=== PATIENT | male | born 1965 | race Hispanic/Latino ===

== ENCOUNTER 2021-03-02 12:22 | Emergency (ER) | payer MEDICARE, OTHER ==
[~2021-03-02] VITALS: Ht 167.6 cm; Wt 104.3 kg
[2021-03-02] MEDS ORDERED: ONDANSETRON HCL INJ 2MG/ML 2ML 2 MG/ML VIAL IV STA ×2 (13:02→16:13)
[2021-03-02] MEDS ORDERED: PANTOPRAZOLE 40 MG 10ML VIAL IV STA (13:02)
[2021-03-02] MEDS ORDERED: SODIUM CHLORIDE 0.9% 500ML 500 ML IV ONE (13:15)
[2021-03-02] MEDS ORDERED: DIATRIZOATE MEGL/DIATRIZOA SOD 30 ML BTL PO ONE (13:17)
[2021-03-02 13:29] LABS: BASOPHILS # (AUTO) 0.1 (0.0-0.1); BASOPHILS % 0.8 % (0.0-1.0); EOSINOPHILS # (AUTO) 0.4 (0.0-0.4); EOSINOPHILS % 4.3 % (0.0-6.0); HEMATOCRIT 43.4 % (38.2-49.6); HEMOGLOBIN 14.5 g/dL (14.0-18.0); LYMPHOCYTES # (AUTO) 1.6 (1.0-3.2); LYMPHOCYTES % 17.9 % (18.0-39.1); MEAN CORPUSCULAR HEMOGLOBIN 29.1 pg (28-32); MEAN CORPUSCULAR HGB CONC 33.4 g/dL (31-35); MONOCYTES # (AUTO) 0.9 (0.2-0.8); MONOCYTES % 10.5 % (4.4-11.3); NEUTROPHILS # (AUTO) 5.9 (2.1-6.9); NEUTROPHILS % 65.7 % (38.7-80.0); PLATELET COUNT 223 x10e3/uL (140-360); RED BLOOD COUNT 4.99 x10e6/uL (4.3-5.7); RED CELL DISTRIBUTION WIDTH 13.7 % (11.7-14.4)
[2021-03-02 13:48] LABS: ALBUMIN 4.4 g/dL (3.5-5.0); ALBUMIN/GLOBULIN RATIO 1.2 (0.8-2.0); ANION GAP 14.9 mmol/L (8-16); CALCIUM 8.8 mg/dL (8.4-10.2); CREATININE, SERUM 1.73 mg/dL (0.72-1.25); MAGNESIUM 2.5 MG/DL (1.3-2.1); POTASSIUM 3.9 mmol/L (3.5-5.1)
[2021-03-02 14:02] LABS: CLARITY,URINE CLEAR (CLEAR); COLOR,URINE YELLOW (YELLOW); LEUKOCYTE ESTERASE ,URINE NEGATIVE (NEGATIVE); NITRITE,URINE NEGATIVE (NEGATIVE)
[2021-03-02 14:03] LABS: KETONES,URINE NEGATIVE (NEGATIVE); PROTEIN,URINE DIPSTICK NEGATIVE (NEGATIVE); URINE UROBILINOGEN 0.2 mg/dL (0.2 - 1)
[2021-03-02 14:17] LABS: EPITHELIAL CELLS,URINE RARE /LPF; HYALINE CASTS 0-1 (0-1)
[2021-03-02] MEDS ORDERED: MORPHINE SULFATE INJ 4 MG/ML INJ 1ML IV ONE (16:15)
[2021-03-02] MEDS ORDERED: SODIUM CHLORIDE 0.9% 50ML 50 ML ONE (16:41)
[2021-03-02] MEDS ORDERED: IOPAMIDOL 370 MG/ML 200 ML INFUS..BTL INJ ONE (16:42)
== END 2021-03-02 17:18 | disposition home or self-care (01) ==
LOC: ER 12:54
DX: R10.30 Lower abdominal pain, unspecified (principal); I10 Essential (primary) hypertension; E11.9 Type 2 diabetes mellitus without complications; E78.5 Hyperlipidemia, unspecified; Z85.038 Personal history of other malignant neoplasm of large intestine; Z85.118 Personal history of other malignant neoplasm of bronchus and lung
CPT/HCPCS: 36415; 74177; 80053; 81001; 82150; 83690; 83735; 85025; 87086; 99284; C9113; J2270; J2405; J7040; Q9967

== ENCOUNTER → 2021-05-02 | Day surgery (SDC) | payer MEDICARE ==
[2021-04-28 16:19] LABS: BASOPHILS # (AUTO) 0.1 (0.0-0.1); BASOPHILS % 0.9 % (0.0-1.0); EOSINOPHILS # (AUTO) 0.3 (0.0-0.4); EOSINOPHILS % 3.4 % (0.0-6.0); HEMATOCRIT 43.2 % (38.2-49.6); HEMOGLOBIN 14.3 g/dL (14.0-18.0); LYMPHOCYTES # (AUTO) 1.6 (1.0-3.2); LYMPHOCYTES % 16.9 % (18.0-39.1); MEAN CORPUSCULAR HEMOGLOBIN 28.7 pg (28-32); MEAN CORPUSCULAR HGB CONC 33.1 g/dL (31-35); MEAN CORPUSCULAR VOLUME 86.7 fL (81-99); MONOCYTES # (AUTO) 0.7 (0.2-0.8); MONOCYTES % 6.8 % (4.4-11.3); NEUTROPHILS # (AUTO) 6.8 (2.1-6.9); NEUTROPHILS % 70.7 % (38.7-80.0); PLATELET COUNT 242 x10e3/uL (140-360); RED BLOOD COUNT 4.98 x10e6/uL (4.3-5.7); RED CELL DISTRIBUTION WIDTH 13.3 % (11.7-14.4)
[2021-04-28 16:30] LABS: PROTHROMBIN TIME 13.8 seconds (11.9-14.5)
[2021-04-28 16:37] LABS: ALBUMIN 4.2 g/dL (3.5-5.0); ALBUMIN/GLOBULIN RATIO 1.1 (0.8-2.0); ANION GAP 13.2 mmol/L (8-16); CALCIUM 9.1 mg/dL (8.4-10.2); CREATININE, SERUM 1.36 mg/dL (0.72-1.25); POTASSIUM 4.2 mmol/L (3.5-5.1)
[~2021-05-02] MED LIST: FENTANYL CITRATE/PF 100MCG/2 ML INJ ONE; GABAPENTIN300 MG PO; GLIMEPIRIDE2 MG PO; GLUCAGON FOR INJ 1 MG VIAL ONE; JARDIANCE25 MG PO; LEVOTHYROXINE50 MCG PO; LIDOCAINE HCL 2% LOCAL INJ 5 ML SDV VIAL INJ ONE; LIPITOR10 MG PO; METFORMIN HCL500 MG PO; MIDAZOLAM HCL 2 MG/2 ML VIAL ONE; POVIDONE IODINE 0.05% 0.05 % ML PO ONE; PROPOFOL IV EMULSION 10 MG/ML 20 ML VIAL ONE; QUETIAPINE FUM100 MG PO; SERTRALINE HCL100 MG PO; SODIUM CHLORIDE 0.9% 50ML 50 ML ONE; ZESTRIL10 MG PO
[2021-05-02 14:00] VITALS: BP 101/61
== END | disposition home or self-care (01) ==
LOC: OR 09:52
PROVIDERS: ATTEND Internal Medicine Gastroenterology
DX: K59.09 Other constipation (principal); Z85.038 Personal history of other malignant neoplasm of large intestine; D12.2 Benign neoplasm of ascending colon; D12.3 Benign neoplasm of transverse colon; K29.50 Unspecified chronic gastritis without bleeding; K25.9 Gastric ulcer, unspecified as acute or chronic, without hemorrhage or perforation; K20.90 Esophagitis, unspecified without bleeding; Z98.0 Intestinal bypass and anastomosis status; K62.89 Other specified diseases of anus and rectum; K21.9 Gastro-esophageal reflux disease without esophagitis; K64.8 Other hemorrhoids; K74.60 Unspecified cirrhosis of liver; E11.9 Type 2 diabetes mellitus without complications; I10 Essential (primary) hypertension; F32.9 Major depressive disorder, single episode, unspecified; Z01.810 Encounter for preprocedural cardiovascular examination; Z01.812 Encounter for preprocedural laboratory examination; Z79.84 Long term (current) use of oral hypoglycemic drugs; Z68.36 Body mass index [BMI] 36.0-36.9, adult; Z85.118 Personal history of other malignant neoplasm of bronchus and lung; Z80.0 Family history of malignant neoplasm of digestive organs
CPT/HCPCS: 36415; 43239; 45385; 80053; 85025; 85610; 85730; 93005; C9113; J1610; J2001; J2250; J2704; J3010; 45378; 45384

== ENCOUNTER → 2022-06-09 | Outpatient (CLI) | payer MEDICARE ==
[~2022-06-09] MED LIST changes: -FENTANYL CITRATE/PF 100MCG/2 ML INJ ONE; -GLUCAGON FOR INJ 1 MG VIAL ONE; -LIDOCAINE HCL 2% LOCAL INJ 5 ML SDV VIAL INJ ONE; -MIDAZOLAM HCL 2 MG/2 ML VIAL ONE; -POVIDONE IODINE 0.05% 0.05 % ML PO ONE; -PROPOFOL IV EMULSION 10 MG/ML 20 ML VIAL ONE; -SODIUM CHLORIDE 0.9% 50ML 50 ML ONE
== END ==
LOC: US 09:47
PROVIDERS: ATTEND Internal Medicine Nephrology
DX: N18.31 Chronic kidney disease, stage 3a (principal)
CPT/HCPCS: 76770; 76857

== ENCOUNTER 2023-08-31 09:22 | Outpatient (RCR) | payer MEDICARE | END 2023-09-11 | LOC: WCC 09:22 | PROVIDERS: ATTEND Internal Medicine Infectious Disease | DX: T81.89XA Other complications of procedures, not elsewhere classified, initial encounter (principal) ==

== ENCOUNTER 2023-09-21 09:31 | Outpatient (RCR) | payer MEDICARE ==
[2023-09-21] MEDS ORDERED: LIDOCAINE/PRILOCAINE 2.5-2.5% KIT ONE (13:19)
== END 2023-10-11 ==
LOC: WCC 09:31
PROVIDERS: ATTEND Internal Medicine Infectious Disease
DX: T81.89XA Other complications of procedures, not elsewhere classified, initial encounter (principal)

== ENCOUNTER 2024-07-01 15:14 | Inpatient (IN) | payer MEDICARE ==
[~2024-07-01] VITALS: Ht 170.2 cm; Wt 89.4 kg
[2024-07-01 16:20] VITALS: TEMP 98.4
[2024-07-01] MEDS ORDERED: SODIUM CHLORIDE FLUSH 10 ML SYR IV PRN (16:45)
[2024-07-01 17:01] LABS: BASOPHILS # (AUTO) 0.1 (0.0-0.1); BASOPHILS % 0.7 % (0.0-1.0); EOSINOPHILS # (AUTO) 0.2 (0.0-0.4); EOSINOPHILS % 1.3 % (0.0-6.0); HEMATOCRIT 40.6 % (38.2-49.6); HEMOGLOBIN 13.9 g/dL (14.0-18.0); LYMPHOCYTES # (AUTO) 1.4 (1.0-3.2); LYMPHOCYTES % 11.4 % (18.0-39.1); MEAN CORPUSCULAR HEMOGLOBIN 32.6 pg (28-32); MEAN CORPUSCULAR HGB CONC 34.2 g/dL (31-35); MEAN CORPUSCULAR VOLUME 95.1 fL (81-99); MONOCYTES # (AUTO) 1.4 (0.2-0.8); MONOCYTES % 11.7 % (4.4-11.3); NEUTROPHILS # (AUTO) 8.9 (2.1-6.9); NEUTROPHILS % 74.5 % (38.7-80.0); PLATELET COUNT 186 x10e3/uL (140-360); RED BLOOD COUNT 4.27 x10e6/uL (4.3-5.7); RED CELL DISTRIBUTION WIDTH 14.6 % (11.7-14.4); WHITE BLOOD COUNT 12.02 x10e3/uL (4.8-10.8)
[2024-07-01 17:17] LABS: ALANINE AMINOTRANSFERASE 16 IU/L (0-55); ALBUMIN 3.4 g/dL (3.5-5.0); ALBUMIN/GLOBULIN RATIO 0.9 (0.8-2.0); ALKALINE PHOSPHATASE 118 IU/L (40-150); ANION GAP 14.4 mmol/L (8-16); BILIRUBIN,TOTAL 1.7 mg/dL (0.2-1.2); BLOOD UREA NITROGEN 6 mg/dL (7-26); BUN/CREATININE RATIO 8 (6-25); CALCIUM 9.3 mg/dL (8.4-10.2); CARBON DIOXIDE 23 mmol/L (22-29); CHLORIDE 104 mmol/L (98-107); CREATININE, SERUM 0.73 mg/dL (0.72-1.25); EST GLOMERULAR FILTRATION RATE 104 ML/MIN (>=60); GLUCOSE 127 mg/dL (74-118); SODIUM 138 mmol/L (136-145)
[2024-07-01 17:18] LABS: POTASSIUM 3.4 mmol/L (3.5-5.1)
[2024-07-01 17:24] LABS: COVID 19 ANTIGEN NOT DETECTED (NEGATIVE)
[2024-07-01] MEDS ORDERED: IOPAMIDOL 370 MG/ML 100 ML INFUS..BTL INJ ONE (17:31)
[2024-07-01 17:41] LABS: BILIRUBIN,URINE SMALL (NEGATIVE); CLARITY,URINE SL CLOUDY (CLEAR); COLOR,URINE AMBER (YELLOW); GLUCOSE, URINE 1+ (NEGATIVE); KETONES,URINE NEGATIVE (NEGATIVE); LEUKOCYTE ESTERASE ,URINE NEGATIVE (NEGATIVE); NITRITE,URINE NEGATIVE (NEGATIVE); PH,URINE 6.5 (5 - 7); PROTEIN,URINE DIPSTICK 1+ (NEGATIVE); URINE UROBILINOGEN >=8 mg/dL (0.2 - 1)
[2024-07-01 17:52] LABS: BACTERIA,URINE FEW /HPF; MUCUS,URINE MODERATE (RARE)
[2024-07-01] MEDS: Morphine 4mg INJECTION 4 MG/ML INJ IV ONE (18:26)
[2024-07-01 20:35] VITALS: PULSE 88; RESP 16
[2024-07-01] MEDS: SODIUM CHLORIDE 0.9% 1000ML 1,000 ML IV SCH (22:30)
[2024-07-01] MEDS: Morphine 4mg INJECTION 4 MG/ML INJ IV PRN (22:31)
[2024-07-01] MEDS: ONDANSETRON HCL INJ 2MG/ML 2ML 2 MG/ML VIAL IV PRN (22:31)
[2024-07-01] MEDS: SODIUM CHLORIDE 0.9% 250ML IRRIG IR SCH (22:33)
[2024-07-01] MEDS: BENZOCAINE 20% SPR 60 ML CAN MT ONE (22:34)
[2024-07-02] VITALS (8 sets, daily range): BP systolic 139–157; BP diastolic 85–93; PULSE 76–88; RESP 17–18; TEMP 97.3–98.4; O2SAT 96–98
[2024-07-02] MEDS ORDERED: NEXIUM40 MG PO (00:20)
[2024-07-02] MEDS ORDERED: HYDROCODON-ACE1 EA11 PO (00:22)
[2024-07-02 05:38] LABS: BASOPHILS # (AUTO) 0.1 (0.0-0.1); BASOPHILS % 0.9 % (0.0-1.0); EOSINOPHILS # (AUTO) 0.2 (0.0-0.4); EOSINOPHILS % 1.2 % (0.0-6.0); HEMOGLOBIN 13.4 g/dL (14.0-18.0); LYMPHOCYTES # (AUTO) 1.8 (1.0-3.2); MEAN CORPUSCULAR HEMOGLOBIN 32.5 pg (28-32); MEAN CORPUSCULAR HGB CONC 33.5 g/dL (31-35); MEAN CORPUSCULAR VOLUME 97.1 fL (81-99); MONOCYTES # (AUTO) 1.6 (0.2-0.8); MONOCYTES % 12.1 % (4.4-11.3); NEUTROPHILS # (AUTO) 9.3 (2.1-6.9); NEUTROPHILS % 71.3 % (38.7-80.0); PLATELET COUNT 181 x10e3/uL (140-360); RED BLOOD COUNT 4.12 x10e6/uL (4.3-5.7); RED CELL DISTRIBUTION WIDTH 14.6 % (11.7-14.4); WHITE BLOOD COUNT 13.02 x10e3/uL (4.8-10.8)
[2024-07-02 05:42] LABS: INR 1.22
[2024-07-02 05:43] LABS: PARTIAL THROMBOPLASTIN TIME 31.7 seconds (23.8-35.5)
[2024-07-02 06:05] LABS: ALBUMIN 3.2 g/dL (3.5-5.0); ALBUMIN/GLOBULIN RATIO 0.9 (0.8-2.0); ANION GAP 12.9 mmol/L (8-16); BILIRUBIN,TOTAL 1.8 mg/dL (0.2-1.2); CALCIUM 9.7 mg/dL (8.4-10.2); CREATININE, SERUM 0.76 mg/dL (0.72-1.25); POTASSIUM 3.9 mmol/L (3.5-5.1); TOTAL PROTEIN 6.7 g/dL (6.5-8.1)
[2024-07-02] MEDS ORDERED: HYDRALAZINE HCL 20 MG/ML VIAL IV PRN (07:45)
[2024-07-02] MEDS ORDERED: ACETAMINOPHEN 1000 MG/100 ML IV PRN (07:45)
[2024-07-02] MEDS: INSULIN LISPRO 100 UNIT/1 ML 3ML VIAL SQ SCH (08:15)
[2024-07-02] MEDS: ENOXAPARIN SOD INJ 40 MG/0.4 ML SYR SC SCH (18:27)
[2024-07-02] MEDS: ONDANSETRON HCL INJ 2MG/ML 2ML 2 MG/ML VIAL IV PRN (20:38)
[2024-07-02] MEDS: METOCLOPRAMIDE HCL 10 MG/2ML VIAL IV SCH (23:12)
[2024-07-02] MEDS: LORAZEPAM INJ 2 MG/ML VIAL IV PRN (23:12)
[2024-07-03] VITALS (7 sets, daily range): BP systolic 131–165; BP diastolic 68–93; PULSE 84–97; RESP 17–18; TEMP 97.6–98.2; O2SAT 96–100
[2024-07-03 05:06] LABS: BASOPHILS # (AUTO) 0.1 (0.0-0.1); EOSINOPHILS # (AUTO) 0.2 (0.0-0.4); HEMATOCRIT 32.6 % (38.2-49.6); LYMPHOCYTES # (AUTO) 1.3 (1.0-3.2); LYMPHOCYTES % 13.6 % (18.0-39.1); MEAN CORPUSCULAR HEMOGLOBIN 32.6 pg (28-32); MEAN CORPUSCULAR HGB CONC 33.7 g/dL (31-35); MEAN CORPUSCULAR VOLUME 96.7 fL (81-99); MONOCYTES # (AUTO) 1.1 (0.2-0.8); MONOCYTES % 12.4 % (4.4-11.3); NEUTROPHILS # (AUTO) 6.5 (2.1-6.9); NEUTROPHILS % 70.6 % (38.7-80.0); PLATELET COUNT 149 x10e3/uL (140-360); RED BLOOD COUNT 3.37 x10e6/uL (4.3-5.7); RED CELL DISTRIBUTION WIDTH 14.4 % (11.7-14.4)
[2024-07-03 05:46] LABS: ALBUMIN 2.8 g/dL (3.5-5.0); ALBUMIN/GLOBULIN RATIO 0.9 (0.8-2.0); BILIRUBIN,TOTAL 1.7 mg/dL (0.2-1.2); CALCIUM 8.2 mg/dL (8.4-10.2); CREATININE, SERUM 0.65 mg/dL (0.72-1.25); MAGNESIUM 1.7 MG/DL (1.3-2.1); PHOSPHORUS 3.4 MG/DL (2.3-4.7); TOTAL PROTEIN 5.8 g/dL (6.5-8.1)
[2024-07-03 05:52] LABS: THYROID STIMULATING HORMONE 2.547 uIU/mL (0.350-4.940)
[2024-07-03] MEDS: MAGNESIUM SULFATE 2GM/50ML 50 ML IV ONE (11:26)
[2024-07-03] MEDS: POTASSIUM CHLORIDE 10MEQ/100ML 400 ML IV ONE (11:28)
[2024-07-03] MEDS ORDERED: ALBUMIN 25% 12.5GM 50ML 0 ML IV ONE (15:42)
[2024-07-03 17:13] LABS: BODY FLUID APPEARANCE CLOUDY; BODY FLUID COLOR RED; BODY FLUID TYPE PERITONEAL
[2024-07-03 17:18] LABS: RBC,BODY FLUID 40000 cells/uL; WBC,BODY FLUID 1058 cells/uL
[2024-07-03 19:20] LABS: LYMPHOCYTES,BODY FLUID 38 %; MONO/MACROPHG,BODY FLUID 61 %; NEUTROPHILS,BODY FLUID 1 %; TOTAL CELLS COUNTED (DIFF) 100
[2024-07-04] VITALS (7 sets, daily range): BP systolic 132–157; BP diastolic 72–89; PULSE 85–91; RESP 18–20; TEMP 97.6–98; O2SAT 95–98
[2024-07-04 05:38] LABS: BASOPHILS # (AUTO) 0.1 (0.0-0.1); BASOPHILS % 0.8 % (0.0-1.0); EOSINOPHILS # (AUTO) 0.1 (0.0-0.4); EOSINOPHILS % 1.4 % (0.0-6.0); HEMATOCRIT 33.1 % (38.2-49.6); HEMOGLOBIN 11.1 g/dL (14.0-18.0); LYMPHOCYTES # (AUTO) 1.1 (1.0-3.2); LYMPHOCYTES % 12.8 % (18.0-39.1); MEAN CORPUSCULAR HEMOGLOBIN 32.6 pg (28-32); MEAN CORPUSCULAR HGB CONC 33.5 g/dL (31-35); MEAN CORPUSCULAR VOLUME 97.1 fL (81-99); MONOCYTES # (AUTO) 1.1 (0.2-0.8); MONOCYTES % 13.3 % (4.4-11.3); NEUTROPHILS # (AUTO) 6.1 (2.1-6.9); NEUTROPHILS % 71.1 % (38.7-80.0); PLATELET COUNT 168 x10e3/uL (140-360); RED BLOOD COUNT 3.41 x10e6/uL (4.3-5.7); RED CELL DISTRIBUTION WIDTH 14.4 % (11.7-14.4); WHITE BLOOD COUNT 8.57 x10e3/uL (4.8-10.8)
[2024-07-04 06:11] LABS: ALBUMIN/GLOBULIN RATIO 0.9 (0.8-2.0); ANION GAP 21.2 mmol/L (8-16); BILIRUBIN,TOTAL 1.5 mg/dL (0.2-1.2); CALCIUM 8.5 mg/dL (8.4-10.2); CREATININE, SERUM 0.72 mg/dL (0.72-1.25); MAGNESIUM 1.9 MG/DL (1.3-2.1); TOTAL PROTEIN 6.3 g/dL (6.5-8.1)
[2024-07-04 06:14] LABS: POTASSIUM 3.2 mmol/L (3.5-5.1)
[2024-07-04] MEDS: DEXTROSE 50% SYRINGE 50 ML IV PRN (06:21)
[2024-07-04] MEDS: BISACODYL 10 MG SUPP PR ONE (11:35)
[2024-07-04] MEDS: DEXTROSE 5%/0.45% SOD CHL 1,000 ML IV ONE (14:38)
[2024-07-04] MEDS: POTASSIUM CHLORIDE 10MEQ EA PO ONE (18:00)
[2024-07-04] MEDS: BISACODYL 10 MG SUPP PR SCH (22:24)
[2024-07-05 00:02] VITALS: BP 156/91; PULSE 93; RESP 17; TEMP 98; O2SAT 98
[2024-07-05 04:02] VITALS: BP 138/95; PULSE 88; RESP 16; TEMP 98.2; O2SAT 93
[2024-07-05 05:54] LABS: BASOPHILS # (AUTO) 0.1 (0.0-0.1); BASOPHILS % 0.9 % (0.0-1.0); EOSINOPHILS # (AUTO) 0.1 (0.0-0.4); EOSINOPHILS % 1.7 % (0.0-6.0); HEMOGLOBIN 10.7 g/dL (14.0-18.0); LYMPHOCYTES # (AUTO) 1.1 (1.0-3.2); MEAN CORPUSCULAR HEMOGLOBIN 32.3 pg (28-32); MEAN CORPUSCULAR HGB CONC 33.4 g/dL (31-35); MEAN CORPUSCULAR VOLUME 96.7 fL (81-99); MONOCYTES # (AUTO) 1.1 (0.2-0.8); MONOCYTES % 15.6 % (4.4-11.3); NEUTROPHILS # (AUTO) 4.6 (2.1-6.9); NEUTROPHILS % 65.2 % (38.7-80.0); PLATELET COUNT 169 x10e3/uL (140-360); RED BLOOD COUNT 3.31 x10e6/uL (4.3-5.7); RED CELL DISTRIBUTION WIDTH 14.1 % (11.7-14.4); WHITE BLOOD COUNT 7.05 x10e3/uL (4.8-10.8)
[2024-07-05 06:07] LABS: ALANINE AMINOTRANSFERASE 18 IU/L (0-55); ALBUMIN 2.8 g/dL (3.5-5.0); ALBUMIN/GLOBULIN RATIO 0.9 (0.8-2.0); ALKALINE PHOSPHATASE 94 IU/L (40-150); ANION GAP 13.8 mmol/L (8-16); BILIRUBIN,TOTAL 1.2 mg/dL (0.2-1.2); BLOOD UREA NITROGEN < 5 mg/dL (7-26); CALCIUM 8.6 mg/dL (8.4-10.2); CARBON DIOXIDE 25 mmol/L (22-29); CHLORIDE 104 mmol/L (98-107); CREATININE, SERUM 0.84 mg/dL (0.72-1.25); EST GLOMERULAR FILTRATION RATE 99 ML/MIN (>=60); GLUCOSE 84 mg/dL (74-118); MAGNESIUM 1.7 MG/DL (1.3-2.1); SODIUM 140 mmol/L (136-145); TOTAL PROTEIN 5.9 g/dL (6.5-8.1)
[2024-07-05 06:11] LABS: BUN/CREATININE RATIO 6 (6-25); POTASSIUM 2.8 mmol/L (3.5-5.1)
[2024-07-05] MEDS: POTASSIUM CHLORIDE 20 MEQ TAB CR PO ONE ×2 (07:57→09:36)
[2024-07-05 08:17] VITALS: BP 152/85; PULSE 86; RESP 19; TEMP 97.9; O2SAT 98
[2024-07-05 11:44] VITALS: BP 156/85; PULSE 89; RESP 16; TEMP 97.3; O2SAT 96
[2024-07-05 16:30] VITALS: BP 138/73; PULSE 85; RESP 19; TEMP 97.4; O2SAT 97
[2024-07-05 18:07] LABS: ANION GAP 13.1 mmol/L (8-16); BLOOD UREA NITROGEN < 5 mg/dL (7-26); CALCIUM 8.9 mg/dL (8.4-10.2); CARBON DIOXIDE 24 mmol/L (22-29); CHLORIDE 103 mmol/L (98-107); CREATININE, SERUM 0.76 mg/dL (0.72-1.25); EST GLOMERULAR FILTRATION RATE 102 ML/MIN (>=60); GLUCOSE 203 mg/dL (74-118); SODIUM 137 mmol/L (136-145)
[2024-07-05 18:09] LABS: BUN/CREATININE RATIO 7 (6-25); POTASSIUM 3.1 mmol/L (3.5-5.1)
[2024-07-05] MEDS: MAGNESIUM OXIDE 400 MG TAB PO ONE (19:37)
[2024-07-05] MEDS: POTASSIUM CHLORIDE 10MEQ EA PO ONE (19:38)
[2024-07-05] MEDS: BISACODYL 10 MG SUPP PR SCH (19:39)
[2024-07-05 20:00] VITALS: BP 158/79; PULSE 86; RESP 18; TEMP 98.3; O2SAT 98
[2024-07-06] VITALS (8 sets, daily range): BP systolic 101–157; BP diastolic 69–88; PULSE 70–91; RESP 17–18; TEMP 97.8–99.1; O2SAT 95–100
[2024-07-06 06:26] LABS: BASOPHILS # (AUTO) 0.1 (0.0-0.1); BASOPHILS % 0.8 % (0.0-1.0); EOSINOPHILS # (AUTO) 0.1 (0.0-0.4); EOSINOPHILS % 1.5 % (0.0-6.0); HEMATOCRIT 32.2 % (38.2-49.6); LYMPHOCYTES % 15.5 % (18.0-39.1); MEAN CORPUSCULAR HEMOGLOBIN 32.4 pg (28-32); MEAN CORPUSCULAR HGB CONC 34.2 g/dL (31-35); MEAN CORPUSCULAR VOLUME 94.7 fL (81-99); MONOCYTES # (AUTO) 0.9 (0.2-0.8); MONOCYTES % 13.9 % (4.4-11.3); NEUTROPHILS # (AUTO) 4.4 (2.1-6.9); NEUTROPHILS % 67.5 % (38.7-80.0); PLATELET COUNT 182 x10e3/uL (140-360); RED CELL DISTRIBUTION WIDTH 14.1 % (11.7-14.4); WHITE BLOOD COUNT 6.57 x10e3/uL (4.8-10.8)
[2024-07-06 06:50] LABS: ALANINE AMINOTRANSFERASE 18 IU/L (0-55); ALBUMIN 2.9 g/dL (3.5-5.0); ALBUMIN/GLOBULIN RATIO 0.9 (0.8-2.0); ALKALINE PHOSPHATASE 108 IU/L (40-150); ANION GAP 8.2 mmol/L (8-16); BILIRUBIN,TOTAL 1.3 mg/dL (0.2-1.2); BLOOD UREA NITROGEN < 5 mg/dL (7-26); CALCIUM 9.8 mg/dL (8.4-10.2); CARBON DIOXIDE 30 mmol/L (22-29); CHLORIDE 104 mmol/L (98-107); CREATININE, SERUM 0.68 mg/dL (0.72-1.25); EST GLOMERULAR FILTRATION RATE 106 ML/MIN (>=60); GLUCOSE 115 mg/dL (74-118); MAGNESIUM 1.6 MG/DL (1.3-2.1); SODIUM 139 mmol/L (136-145); TOTAL PROTEIN 6.2 g/dL (6.5-8.1)
[2024-07-06 06:56] LABS: BUN/CREATININE RATIO 7 (6-25); POTASSIUM 3.2 mmol/L (3.5-5.1)
[2024-07-06] MEDS: POTASSIUM CHLORIDE 10MEQ EA PO ONE ×2 (10:00→14:26)
[2024-07-07] MEDS ORDERED: MAGNESIUM OXIDE 400 MG TAB PO SCH (09:00)
== END 2024-07-06 18:40 | disposition home or self-care (01) | DRG 389 ==
LOC: ER 17:30 → ERHOLD 21:09 → MED/SURG2 23:42
PROVIDERS: ADMIT Internal Medicine; ATTEND Internal Medicine
PROC: 0W9G3ZZ Drainage of Peritoneal Cavity, Percutaneous Approach (ICD-10-PCS; principal; 2024-07-03)
DX: K56.600 Partial intestinal obstruction, unspecified as to cause (principal); C24.0 Malignant neoplasm of extrahepatic bile duct; R18.0 Malignant ascites; I85.00 Esophageal varices without bleeding; K76.6 Portal hypertension; C77.2 Secondary and unspecified malignant neoplasm of intra-abdominal lymph nodes; E11.649 Type 2 diabetes mellitus with hypoglycemia without coma; R16.0 Hepatomegaly, not elsewhere classified; E11.42 Type 2 diabetes mellitus with diabetic polyneuropathy; E11.22 Type 2 diabetes mellitus with diabetic chronic kidney disease; K74.69 Other cirrhosis of liver; I12.9 Hypertensive chronic kidney disease with stage 1 through stage 4 chronic kidney disease, or unspecified chronic kidney disease; N18.31 Chronic kidney disease, stage 3a; B19.20 Unspecified viral hepatitis C without hepatic coma; R06.02 Shortness of breath; K43.9 Ventral hernia without obstruction or gangrene; Z11.52 Encounter for screening for COVID-19; E87.6 Hypokalemia; R11.2 Nausea with vomiting, unspecified; E78.5 Hyperlipidemia, unspecified; F33.41 Major depressive disorder, recurrent, in partial remission; E66.09 Other obesity due to excess calories; Z68.30 Body mass index [BMI] 30.0-30.9, adult; Z79.84 Long term (current) use of oral hypoglycemic drugs; Z79.890 Hormone replacement therapy; Z85.038 Personal history of other malignant neoplasm of large intestine; Z85.118 Personal history of other malignant neoplasm of bronchus and lung; Z90.49 Acquired absence of other specified parts of digestive tract; Z90.2 Acquired absence of lung [part of]; Z98.1 Arthrodesis status; Z95.828 Presence of other vascular implants and grafts; Z92.21 Personal history of antineoplastic chemotherapy
CPT/HCPCS: 0223U; 36415; 49083; 71045; 74018; 74019; 74177; 80048; 80053; 81001; 82040; 82948; 83036; 83735; 84100; 84157; 84443; 85025; 85610; 85730; 87070; 87205; 88112; 88305; 89051; 99252; 99284; J1650; J2060; J2270; J2405; J2470; J2543; J2765; J3475; J3480; J7030; J7799; Q9967